=== PATIENT | male | born 1985 | race Caucasian/White ===

== ENCOUNTER 2021-09-15 12:49 | Emergency (ER) | payer SELFPAY ==
[~2021-09-15] VITALS: Ht 172.7 cm; Wt 77.1 kg
--- NOTE | 2021-09-15 13:00 | NUR ---
Patient brought back ambulatory to room 6 per triage/chargemaster specialist.
--- NOTE | 2021-09-15 13:01 | NUR ---
First contact with patient. Patient awake, alert and oriented x 3. Reporting dizziness x 15-20 minutes along with blurry vision. States also has c/p, "throbbing" in nature. Awaiting MD evaluation.
[2021-09-15 13:02] VITALS: BP_SYST 141
--- NOTE | 2021-09-15 13:03 | NUR ---
Dr Dawson to bedside to assess patient
[2021-09-15] MEDS ORDERED: METOCLOPRAMIDE HCL 10 MG/2 ML VIAL IVP ONE (13:15)
[2021-09-15] MEDS ORDERED: MECLIZINE HCL 25 MG TABLET (ANITVERT) PO ONE (13:15)
--- NOTE | 2021-09-15 13:30 | NUR ---
# 20 gauge angiocath placed to L AC. Use of asceptic technique. Opsite placed over site. Blood return noted. Blood for lab drawn from site. Flushed with 10 cc of normal saline. No evidence of infiltration noted. Patient tolerated well.
--- NOTE | 2021-09-15 13:31 | NUR ---
CXR done at bedside
[2021-09-15 13:41] LABS: BASOPHILS % (AUTO) 0.6 % (0.0-2.0); EOSINOPHILS # (AUTO) 0.1 K/uL (0.0-0.4); EOSINOPHILS % (AUTO) 1.6 % (0.0-4.0); HEMOGLOBIN 14.5 g/dL (14.0-18.0); LYMPHOCYTES # (AUTO) 1.3 K/uL (1.0-5.5); LYMPHOCYTES % (AUTO) 17.1 % (20.5-51.5); MEAN CORPUSCULAR HEMOGLOBIN 28 pg (27-31); MEAN CORPUSCULAR HGB CONC 34 % (32-36); MEAN CORPUSCULAR VOLUME 84 fL (79.0-98.0); MONOCYTES # (AUTO) 0.8 K/uL (0.0-1.0); MONOCYTES % (AUTO) 10.1 % (1.7-9.3); NEUTROPHILS # (AUTO) 5.3 K/uL (1.8-7.7); NEUTROPHILS % (AUTO) 70.6 % (40.0-70.0); PLATELET COUNT (AUTO) 306 K/uL (130-430); RED BLOOD CELL COUNT(AUTO) 5.16 MIL/uL (4.2-6.2); RED CELL DISTRIBUTION WIDTH 14.8 % (9.0-15.0); WHITE BLOOD COUNT (AUTO) 7.5 K/uL (4.8-10.8)
[2021-09-15 13:45] LABS: CALCIUM 8.9 mg/dL (8.4-11.0); CREATININE 0.87 mg/dL (0.55-1.30); POTASSIUM 3.9 mmol/L (3.5-5.1)
[2021-09-15 13:51] LABS: ALBUMIN 3.8 g/dL (3.4-4.8); TOTAL BILIRUBIN 0.7 mg/dL (0.0-1.0)
[2021-09-15] MEDS ORDERED: NACL 0.9% 1,000 ML IV ONE (14:30)
--- NOTE | 2021-09-15 14:30 | NUR ---
COVID swab collected at bedside and sent to lab
--- NOTE | 2021-09-15 15:29 | NUR ---
[facility] for transport to [facility] for CT scan
--- NOTE | 2021-09-15 16:55 | NUR ---
Patient transported to [place] via [facility] for CT scan
--- NOTE | 2021-09-15 18:10 | NUR ---
Patient returned from [place] via ambulance gurney to room 6
--- NOTE | 2021-09-15 18:14 | NUR ---
Dr Houser to bedside to assess patient
--- NOTE | 2021-09-15 19:14 | NUR ---
Report given to Glendy LOO to assume care of patient
--- NOTE | 2021-09-15 19:31 | NUR ---
RECEIVED REPORT FROM EZE DESAI. PT SLEEPING AT THIS TIME. NO ACUTE DISTRESS NOTED. VSS. PENDING CT REPORT AND AWAITING FOR DISPOSITION.
--- NOTE | 2021-09-15 20:40 | NUR ---
DR. HUTCHINSON SPOKE WITH ADMISSION MD PATEL. STATED RECOMMENDATIONS TO TRANSFER TO [facility] TO R/O POSSIBLE STROKE. TELE NEURO CONSULT PUT INTO PLACE.
--- NOTE | 2021-09-15 21:19 | NUR ---
DR. HUTCHINSON ON THE PHONE WITH MD BOLDEN (NEUROLOGIST AT [facility]). OK FOR TRANSFER TO TRANSFER ER.
[2021-09-15 22:40] VITALS: BP_SYST 130
--- NOTE | 2021-09-15 22:42 | NUR ---
Patient to be transferred to [place] [facility]. Is being transferred due to higher level of care. Receiving facility has accepting physician and available space. ER physician has signed transfer form. Patient or responsible green party has agreed to transfer and signed form. Patient belongings inventoried and will be sent with patient. Copy of nursing notes, lab reports, EKG, Physicians Orders and X-rays to be sent with patient. Report called to EZE GILLETTE at receiving facility. Receiving physician is (ER), DHRUV (NEURO). ambulance service has been called for transfer. ETA is .
== END 2021-09-15 22:42 | disposition short-term general hospital (02) ==
LOC: SED 12:49
DX: R42 Dizziness and giddiness (principal); Z20.822 Contact with and (suspected) exposure to COVID-19
CPT/HCPCS: 36415; 71045; 80053; 84484; 85025; 87426; 93005; 96361; 96374; 99285; J2765; J7030; J8597